=== PATIENT | male | born 1985 | race Hispanic/Latino ===

== ENCOUNTER 2019-06-28 16:30 | Emergency (ER) | payer BC ==
[2019-06-28] MEDS ORDERED: IBUPROFEN 400 MG TAB ONE (17:11)
[2019-06-28] MEDS ORDERED: HYDROCODONE/APAP 10/325 TAB ONE (17:11)
--- NOTE | 2019-06-28 17:32 | EDPHYS ---
Physician Documentation [facility] Name: Jan Grewal Age: 33 yrs Sex: Male : 1985 Arrival Date: 06/28/2019 Time: 16:31 Bed 26 Private MD: ED Physician Bj Nguyen HPI: 06/28 17:07 This 33 yrs old Male presents to ER via Wheelchair with complaints of Ankle rn Injury. 17:07 The patient presents with decreased range of motion, an injury. The complaints affect rn the right ankle. Onset: The symptoms/episode began/occurred just prior to arrival. Modifying factors: The symptoms are alleviated by the symptoms are aggravated by weight bearing, movement. Severity of symptoms: At their worst the symptoms were moderate, in the emergency department the symptoms are unchanged. The patient has experienced a previous episode. The patient has not recently seen a physician. Reports rolled right ankle on curb, reports mild swelling, just happened, no other injury, hurts to walk, put brace on it and felt better. . Historical: - Allergies: 16:59 No Known Allergies; aj1 - Home Meds: 16:59 lisinopril 20 mg Oral tab 1 tab once daily [Active]; aj1 - PMHx: 16:59 Hypertension; Pneumonia; aj1 - Immunization history:: Flu vaccine is not up to date. - Social history:: Smoking status: Patient/guardian denies using tobacco. - Ebola Screening: : Patient denies travel to an Ebola-affected area in the 21 days before illness onset. - Family history:: not pertinent. - Hospitalizations: : No recent hospitalization is reported. ROS: 17:09 Constitutional: Negative for fever, chills, and weight loss, MS/Extremity: + right rn ankle injury and pain Exam: 17:09 Constitutional: This is a well developed, well nourished patient who is awake, alert, rn appears anxious and in pain MS/ Extremity: Pulses equal, no cyanosis. Neurovascular intact. + mild tenderness and swelling at lateral malleolus, no laceration Vital Signs: 16:59 BP 137 / 94; Pulse 112; Resp 20; Temp 99.1; Pulse Ox 97% on R/A; Weight 102.06 kg (R); aj1 Height 5 ft. 6 in. (167.64 cm) (R); Pain 7/10; 17:45 BP 135 / 78; Pulse 95; Resp 18; Temp 98; Pulse Ox 100% on R/A; mg2 16:59 Body Mass Index 36.32 (102.06 kg, 167.64 cm) aj1 MDM: 17:01 Patient medically screened. rn 17:30 Differential diagnosis: fracture, sprain. Data reviewed: vital signs, nurses notes, rn radiologic studies, plain films, and as a result, I will discharge patient. Test interpretation: by ED physician or midlevel provider: plain radiologic studies, Xray right ankle without fracture or dislocation. Counseling: I had a detailed discussion with the patient and/or guardian regarding: the historical points, exam findings, and any diagnostic results supporting the discharge/admit diagnosis, radiology results, the need for outpatient follow up, to return to the emergency department if symptoms worsen or persist or if there are any questions or concerns that arise at home. Response to treatment: the patient's symptoms have mildly improved after treatment, and as a result, I will discharge patient. 06/28 17:02 Order name: XRAY Ankle RIGHT 3 view; Complete Time: 17:50 rn Administered Medications: 17:19 Drug: Motrin 800 mg Route: PO; mg2 17:20 Follow up: Response: No adverse reaction; Medication administered at discharge. mg2 17:19 Drug: [place] 10 mg-325 mg 1 tabs Route: PO; mg2 17:20 Follow up: Response: No adverse reaction; Medication administered at discharge. mg2 Disposition: 06/28/19 17:32 Discharged to Home. Impression: Sprain of ankle. - Condition is Stable. - Discharge Instructions: Ankle Sprain. - Medication Reconciliation Form, Thank You Letter, Antibiotic Education, Prescription Opioid Use form. - Follow up: Private Physician; When: As needed; Reason: Recheck today's complaints, Re-evaluation by your physician. - Problem is new. - Symptoms have improved. Signatures: Dispatcher [employer] EDMS Yaa Shelton RN RN aj1 Bj Nguyen MD MD rn Gardose, Michele, RN RN mg2 Corrections: (The following items were deleted from the chart) 18:06 17:32 06/28/2019 17:32 Discharged to Home. Impression: Sprain of ankle. Condition is mg2 Stable. Forms are Medication Reconciliation Form, Thank You Letter, Antibiotic Education, Prescription Opioid Use. Follow up: Private Physician; When: As needed; Reason: Recheck today's complaints, Re-evaluation by your physician. Problem is new. Symptoms have improved. rn
--- NOTE | 2019-06-28 17:32 | ER ---
Nurse's Notes [facility] Name: Jan Grewal Age: 33 yrs Sex: Male : 1985 Arrival Date: 06/28/2019 Time: 16:31 Bed 26 Private MD: Diagnosis: Sprain of ankle Presentation: 06/28 16:56 Presenting complaint: Patient states: "I got in like 11 last night and I was unloading aj1 my U-haul, and I stepped of the curb and rolled my ankle really bad" Patient reports pain to right ankle. Limited ROM noted to right ankle. Transition of care: patient was not received from another setting of care. Onset of symptoms was June 27, 2019 at 23:00. Risk Assessment: Do you want to hurt yourself or someone else? Patient reports no desire to harm self or others. Initial Sepsis Screen: Does the patient meet any 2 criteria? No. Patient's initial sepsis screen is negative. Does the patient have a suspected source of infection? No. Patient's initial sepsis screen is negative. Care prior to arrival: None. 16:56 Method Of Arrival: Wheelchair aj1 16:56 Acuity: SARAH 4 aj1 Triage Assessment: 16:59 General: Appears in no apparent distress. comfortable, Behavior is calm, cooperative, aj1 appropriate for age. Pain: Complains of pain in right ankle Pain currently is 7 out of 10 on a pain scale. Neuro: Level of Consciousness is awake, alert, obeys commands. Cardiovascular: Patient's skin is warm and dry. Respiratory: Airway is patent Respiratory effort is even, unlabored, Respiratory pattern is regular, symmetrical. Historical: - Allergies: 16:59 No Known Allergies; aj1 - Home Meds: 16:59 lisinopril 20 mg Oral tab 1 tab once daily [Active]; aj1 - PMHx: 16:59 Hypertension; Pneumonia; aj1 - Immunization history:: Flu vaccine is not up to date. - Social history:: Smoking status: Patient/guardian denies using tobacco. - Ebola Screening: : Patient denies travel to an Ebola-affected area in the 21 days before illness onset. - Family history:: not pertinent. - Hospitalizations: : No recent hospitalization is reported. Screenin:22 Abuse screen: Denies threats or abuse. Denies injuries from another. Nutritional mg2 screening: No deficits noted. Tuberculosis screening: No symptoms or risk factors identified. Fall Risk Fall in past 12 months (25 points). Assessment: 17:20 General: Appears in no apparent distress. comfortable, Behavior is calm, cooperative. mg2 Pain: Complains of pain in right ankle Pain does not radiate. Pain currently is 8 out of 10 on a pain scale. Quality of pain is described as aching, Pain began suddenly, last night. Neuro: Level of Consciousness is awake, alert, obeys commands, Oriented to person, place, time, situation. Cardiovascular: Capillary refill < 3 seconds Patient's skin is warm and dry. Respiratory: Airway is patent Respiratory effort is even, unlabored, Respiratory pattern is regular, symmetrical. GI: No signs and/or symptoms were reported involving the gastrointestinal system. : No signs and/or symptoms were reported regarding the genitourinary system. EENT: No signs and/or symptoms were reported regarding the EENT system. Derm: Skin is intact, is healthy with good turgor, Skin is pink, warm \\T\\ dry. normal. Musculoskeletal: Circulation, motion, and sensation intact. Capillary refill < 3 seconds, Swelling present in right ankle. Injury Description: swelling and pain in the right ankle. 18:05 Reassessment: pain is tolerable. mg2 Vital Signs: 16:59 BP 137 / 94; Pulse 112; Resp 20; Temp 99.1; Pulse Ox 97% on R/A; Weight 102.06 kg (R); aj1 Height 5 ft. 6 in. (167.64 cm) (R); Pain 7/10; 17:45 BP 135 / 78; Pulse 95; Resp 18; Temp 98; Pulse Ox 100% on R/A; mg2 16:59 Body Mass Index 36.32 (102.06 kg, 167.64 cm) aj1 ED Course: 16:31 Patient arrived in ED. as 16:59 Triage completed. aj1 16:59 Arm band placed on Patient placed in an exam room. aj1 17:01 Bj Nguyen MD is Attending Physician. rn 17:10 Dominic Parada RN is Primary Nurse. mg2 17:22 Patient has correct armband on for positive identification. Door closed. mg2 17:22 No provider procedures requiring assistance completed. Patient did not have IV access mg2 during this emergency room visit. 17:24 XRAY Ankle RIGHT 3 view In Process Unspecified. EDMS Administered Medications: 17:19 Drug: Motrin 800 mg Route: PO; mg2 17:20 Follow up: Response: No adverse reaction; Medication administered at discharge. mg2 17:19 Drug: [place] 10 mg-325 mg 1 tabs Route: PO; mg2 17:20 Follow up: Response: No adverse reaction; Medication administered at discharge. mg2 Outcome: 17:32 Discharge ordered by . rn 18:05 Discharged to home via wheelchair. mg2 18:05 Condition: stable 18:05 Discharge instructions given to patient, Instructed on discharge instructions, follow up and referral plans. Demonstrated understanding of instructions, follow-up care. 18:06 Patient left the ED. mg2 Signatures: Dispatcher [employer] EDMS Yaa Shelton RN RN reshma1 Rashida Sesay Roman, MD MD rn Gardose, Michele, RN RN mg2
--- NOTE | 2019-06-28 17:46 | RAD REPORT ---
EXAM DESCRIPTION: RAD - Ankle Right 3 View - 06/28/2019 5:24 pm CLINICAL HISTORY: Right ankle pain FINDINGS: Soft tissue swelling. 8 millimeter oval bony density lies between the lateral malleolus and talus. It has a sclerotic borde r which indicates that it likely is chronic No acute fracture or dislocation seen
[2019-06-28 18:16] VITALS: BP 135/78; TEMP 98; O2SAT 100
== END 2019-06-28 18:06 | disposition home or self-care (01) ==
LOC: ER 16:30
DX: S93.401A Sprain of unspecified ligament of right ankle, initial encounter (principal); I10 Essential (primary) hypertension; X50.1XXA Overexertion from prolonged static or awkward postures, initial encounter; Y93.89 Activity, other specified; Y92.9 Unspecified place or not applicable
CPT/HCPCS: 99283

== ENCOUNTER 2019-08-12 14:33 | Emergency (ER) | payer BC, SELFPAY ==
[2019-08-12] MEDS ORDERED: MORPHINE 4 MG/ML SYR ONE (15:06)
[2019-08-12] MEDS ORDERED: ONDANSETRON 4 MG/2 ML VIAL ONE (15:06)
[2019-08-12] MEDS ORDERED: NA CHLORIDE 0.9% 1,000 ML ONE (15:06)
[2019-08-12 15:40] LABS: Absolute Lymphocytes (CBC) 1.1 K/uL (0.7-4.9); Basophils % 0.6 % (0-1.3); Hematocrit 44.6 % (39.6-49.0); Lymphocytes % 10.2 % (15.3-44.8); MPV 10.4 fL (7.6-11.3); RBC Red Blood Cell Count 5.09 M/uL (4.33-5.43)
[2019-08-12 16:05] LABS: Albumin 4.4 g/dL (3.4-5.0); Bilirubin Direct 0.2 mg/dL (0-0.2); Bilirubin Total 0.5 mg/dL (0.2-1.0); Potassium 3.7 mmol/L (3.5-5.1); Protein, Total 8.3 g/dL (6.4-8.2)
--- NOTE | 2019-08-12 16:51 | RAD REPORT ---
EXAM DESCRIPTION: CT - Abdomen Pelvis W Contrast - 08/12/2019 4:21 pm CLINICAL HISTORY: ABD PAIN, nausea, diarrhea COMPARISON: None. TECHNIQUE: Biphasic, helical CT imaging of the abdomen and pelvis was performed following 100 ml non -ionic IV contrast. Oral contrast was given. All CT scans are performed using dose optimization technique as appropriate and may include automated exposure control or mA/KV adjustment according to patient size. FINDINGS: No suspicious findings in the lung bases. Liver shows mild fatty infiltration pattern with no focal lesion. Spleen and pancreas are unremarkabl e. Gallbladder and biliary tree are also without suspicious finding. Symmetric renal function is seen with no hydronephrosis or suspicious renal mass. No pyelonephritis o r acute parenchymal process. No bladder abnormalities. No adrenal abnormalities. No stomach or small bowel abnormality. No appendicitis findings. No colon dilatation. Colon is mostly decompressed. There is trace stranding in the adjacent fat. Silva appear minimally edematous. Mild c olitis is suspected. No free air, free fluid or inflammatory stranding. No hernia, mass or bulky ly mphadenopathy. No suspicious bony findings. IMPRESSION: Suspected mild colitis pattern with no obstruction, free air or surgically emergent find ing. Mild fatty infiltration of the liver.
--- NOTE | 2019-08-12 17:07 | EDPHYS ---
Physician Documentation [facility] Name: Jan Grewal Age: 34 yrs Sex: Male : 1985 Arrival Date: 08/12/2019 Time: 14:36 Bed 23 Private MD: ED Physician Bj Nguyen HPI: 08/12 15:36 This 34 yrs old Male presents to ER via Ambulatory with complaints of pm1 Abdominal Pain. 15:36 The patient presents with abdominal pain. pm1 15:36 The patient presents with abdominal pain in the upper abdomen. Onset: The pm1 symptoms/episode began/occurred last night. The symptoms do not radiate. Associated signs and symptoms: Pertinent positives: nausea and vomiting, Pertinent negatives: chest pain, shortness of breath, testicular pain. The symptoms are described as sharp. Modifying factors: The symptoms are alleviated by nothing, the symptoms are aggravated by nothing. Severity of pain: in the emergency department the pain is actually worse. The patient has not experienced similar symptoms in the past. The patient has not recently seen a physician. Historical: - Allergies: 14:39 No Known Allergies; hb - Home Meds: 14:39 lisinopril 20 mg Oral tab 1 tab once daily [Active]; hb - PMHx: 14:39 Hypertension; Pneumonia; hb - PSHx: 14:39 Hernia repair; hb - Immunization history:: Adult Immunizations up to date. - Social history:: Smoking status: Patient/guardian denies using tobacco. - Ebola Screening: : No symptoms or risks identified at this time. ROS: 15:36 Constitutional: Negative for fever, chills, and weight loss, Eyes: Negative for injury, pm1 pain, redness, and discharge, ENT: Negative for injury, pain, and discharge, Neck: Negative for injury, pain, and swelling, Cardiovascular: Negative for chest pain, palpitations, and edema, Respiratory: Negative for shortness of breath, cough, wheezing, and pleuritic chest pain. 15:36 Back: Negative for injury and pain, : Negative for injury, bleeding, discharge, and swelling, MS/Extremity: Negative for injury and deformity, Skin: Negative for injury, rash, and discoloration, Neuro: Negative for headache, weakness, numbness, tingling, and seizure. 15:36 Abdomen/GI: Positive for abdominal pain, nausea and vomiting, diarrhea, Negative for constipation. Exam: 15:36 Constitutional: This is a well developed, well nourished patient who is awake, alert, pm1 and in no acute distress. Head/Face: Normocephalic, atraumatic. Eyes: Pupils equal round and reactive to light, extra-ocular motions intact. Lids and lashes normal. Conjunctiva and sclera are non-icteric and not injected. Cornea within normal limits. Periorbital areas with no swelling, redness, or edema. ENT: Nares patent. No nasal discharge, no septal abnormalities noted. Tympanic membranes are normal and external auditory canals are clear. Oropharynx with no redness, swelling, or masses, exudates, or evidence of obstruction, uvula midline. Mucous membranes moist. Neck: Trachea midline, no thyromegaly or masses palpated, and no cervical lymphadenopathy. Supple, full range of motion without nuchal rigidity, or vertebral point tenderness. No Meningismus. Chest/axilla: Normal chest wall appearance and motion. Nontender with no deformity. No lesions are appreciated. Cardiovascular: Regular rate and rhythm with a normal S1 and S2. No gallops, murmurs, or rubs. Normal PMI, no JVD. No pulse deficits. Respiratory: Lungs have equal breath sounds bilaterally, clear to auscultation and percussion. No rales, rhonchi or wheezes noted. No increased work of breathing, no retractions or nasal flaring. 15:36 Back: No spinal tenderness. No costovertebral tenderness. Full range of motion. Skin: Warm, dry with normal turgor. Normal color with no rashes, no lesions, and no evidence of cellulitis. MS/ Extremity: Pulses equal, no cyanosis. Neurovascular intact. Full, normal range of motion. 15:36 Abdomen/GI: Inspection: abdomen appears normal, Palpation: soft, mild abdominal tenderness, in the epigastric area, mass, is not appreciated, rebound tenderness, is not appreciated. 15:36 Neuro: Orientation: is normal, Motor: is normal, moves all fours, Gait: is steady, at a normal pace, without difficulty. Vital Signs: 14:39 BP 146 / 93; Pulse 105; Resp 16; Temp 98.8; Pulse Ox 100% on R/A; Weight 104.33 kg; hb Height 5 ft. 6 in. (167.64 cm); Pain 7/10; 16:00 BP 146 / 93; Pulse 89; Resp 17; Pulse Ox 99% on R/A; tr5 14:39 Body Mass Index 37.12 (104.33 kg, 167.64 cm) hb MDM: 15:01 Patient medically screened. pm1 17:06 Data reviewed: vital signs. Data interpreted: Pulse oximetry: on room air is 99 %. pm1 Interpretation: normal. Counseling: I had a detailed discussion with the patient and/or guardian regarding: the historical points, exam findings, and any diagnostic results supporting the discharge/admit diagnosis, lab results, radiology results, the need for outpatient follow up, to return to the emergency department if symptoms worsen or persist or if there are any questions or concerns that arise at home. 08/12 15:01 Order name: Basic Metabolic Panel; Complete Time: 16:07 pm1 08/12 15:01 Order name: CBC with Diff; Complete Time: 16:07 pm1 08/12 15:01 Order name: Creatinine for Radiology; Complete Time: 16:07 pm1 08/12 15:01 Order name: Hepatic Function; Complete Time: 16:07 pm1 08/12 15:01 Order name: Lipase; Complete Time: 16:07 pm1 08/12 15:01 Order name: CT Abd/Pelvis - IV Contrast Only; Complete Time: 16:58 pm1 08/12 15:01 Order name: IV Saline Lock; Complete Time: 15:16 pm1 08/12 15:01 Order name: Labs collected and sent; Complete Time: 15:16 pm1 Administered Medications: 15:30 Drug: NS 0.9% 1000 ml Route: IV; Rate: 1000 ml; Site: right antecubital; tr5 17:34 Follow up: IV Status: Completed infusion; IV Intake: 1000ml tr5 15:31 Drug: morphine 4 mg {Note: RASS:0.} Route: IVP; Site: right antecubital; tr5 17:15 Follow up: Response: No adverse reaction tr5 15:31 Drug: Zofran 4 mg Route: IVP; Site: right antecubital; tr5 17:15 Follow up: Response: Nausea is decreased tr5 17:33 Drug: Cipro 500 mg Route: PO; tr5 17:34 Drug: Flagyl 500 mg Volume: 100 ml; Route: IVPB; Rate: 200 ml/hr; Infused Over: 30 tr5 mins; Site: right antecubital; Disposition: 21:24 Co-signature as Attending Physician, Bj Nguyen MD. rn Disposition: 08/12/19 17:06 Discharged to Home. Impression: Colitis, Diarrhea, unspecified. - Condition is Stable. - Discharge Instructions: Abdominal Pain, Adult, Food Choices to Help Relieve Diarrhea, Adult, Diarrhea, Adult, Colitis. - Prescriptions for Bentyl 20 mg Oral Tablet - take 1 tablet by ORAL route every 6 hours As needed; 20 tablet. Flagyl 500 mg Oral Tablet - take 1 tablet by ORAL route every 8 hours for 10 days; 30 tablet. Cipro 500 mg Oral Tablet - take 1 tablet by ORAL route every 12 hours for 10 days; 20 tablet. Zofran 4 mg Oral Tablet - take 1 tablet by ORAL route every 12 hours As needed; 20 tablet. - Medication Reconciliation Form, Thank You Letter, Antibiotic Education, Prescription Opioid Use, Work release form form. - Follow up: Emergency Department; When: As needed; Reason: Worsening of condition. Follow up: Private Physician; When: 2 - 3 days; Reason: Recheck today's complaints, Continuance of care, Re-evaluation by your physician. - Problem is new. - Symptoms have improved. Signatures: Dispatcher [employer] EDMS Bj Nguyen MD MD rn Marinas, Patrick, NURSE INFORMATICS EDUCATOR NURSE INFORMATICS EDUCATOR pm1 Madeline Atwood RN RN hb Rodriguez, Tommie, RN RN tr5 Corrections: (The following items were deleted from the chart) 18:30 17:06 08/12/2019 17:06 Discharged to Home. Impression: Colitis; Diarrhea, unspecified. tr5 Condition is Stable. Forms are Medication Reconciliation Form, Thank You Letter, Antibiotic Education, Prescription Opioid Use. Follow up: Emergency Department; When: As needed; Reason: Worsening of condition. Follow up: Private Physician; When: 2 - 3 days; Reason: Recheck today's complaints, Continuance of care, Re-evaluation by your physician. Problem is new. Symptoms have improved. pm1
--- NOTE | 2019-08-12 17:07 | ER ---
Nurse's Notes [facility] Name: Jan Grewal Age: 34 yrs Sex: Male : 1985 Arrival Date: 08/12/2019 Time: 14:36 Bed 23 Private MD: Diagnosis: Colitis;Diarrhea, unspecified Presentation: 08/12 14:38 Presenting complaint: Upper abdominal pain, nausea, and diarrhea since last night, hb vomit x 1 today. Transition of care: patient was not received from another setting of care. Onset of symptoms was August 11, 2019. Risk Assessment: Do you want to hurt yourself or someone else? Patient reports no desire to harm self or others. Initial Sepsis Screen: Does the patient meet any 2 criteria? No. Patient's initial sepsis screen is negative. Does the patient have a suspected source of infection? No. Patient's initial sepsis screen is negative. Care prior to arrival: None. 14:38 Method Of Arrival: Ambulatory hb 14:38 Acuity: SARAH 3 hb Historical: - Allergies: 14:39 No Known Allergies; hb - Home Meds: 14:39 lisinopril 20 mg Oral tab 1 tab once daily [Active]; hb - PMHx: 14:39 Hypertension; Pneumonia; hb - PSHx: 14:39 Hernia repair; hb - Immunization history:: Adult Immunizations up to date. - Social history:: Smoking status: Patient/guardian denies using tobacco. - Ebola Screening: : No symptoms or risks identified at this time. Screenin:15 Abuse screen: Denies threats or abuse. Nutritional screening: No deficits noted. tr5 Tuberculosis screening: No symptoms or risk factors identified. Fall Risk None identified. Assessment: 15:15 General: Appears in no apparent distress. Behavior is calm, cooperative, appropriate tr5 for age. Pain: Complains of pain in abdomen. Neuro: Level of Consciousness is awake, alert, obeys commands, Oriented to person, place, time. Cardiovascular: Heart tones present Capillary refill < 3 seconds Pulses are all present. Edema is absent. Respiratory: Airway is patent Respiratory effort is even, unlabored, Respiratory pattern is regular, symmetrical. GI: Bowel sounds present X 4 quads. Abd is soft. GI: Reports cramping, diarrhea, nausea. : No signs and/or symptoms were reported regarding the genitourinary system. EENT: No signs and/or symptoms were reported regarding the EENT system. Derm: No signs and/or symptoms reported regarding the dermatologic system. Musculoskeletal: No signs and/or symptoms reported regarding the musculoskeletal system. 16:41 Reassessment: Patient appears in no apparent distress at this time. Patient and/or tr5 family updated on plan of care and expected duration. Pain level reassessed. Patient is alert, oriented x 3, equal unlabored respirations, skin warm/dry/pink. Vital Signs: 14:39 BP 146 / 93; Pulse 105; Resp 16; Temp 98.8; Pulse Ox 100% on R/A; Weight 104.33 kg; hb Height 5 ft. 6 in. (167.64 cm); Pain 7/10; 16:00 BP 146 / 93; Pulse 89; Resp 17; Pulse Ox 99% on R/A; tr5 14:39 Body Mass Index 37.12 (104.33 kg, 167.64 cm) hb ED Course: 14:36 Patient arrived in ED. mr 14:39 Triage completed. hb 14:39 Arm band placed on. hb 14:59 Sammy Ferrer, JARETT is PHCP. pm1 14:59 Bj Nguyen MD is Attending Physician. pm1 15:02 Fredrick Salinas, RN is Primary Nurse. tr5 15:15 Bed in low position. Call light in reach. Side rails up X 1. tr5 15:16 Initial lab(s) drawn, by me, sent to lab. Inserted saline lock: 20 gauge in right lt1 antecubital area, using aseptic technique. 15:18 Radiology exam delayed due to lab results not completed at this time. (BUN/Creatinine). kw1 15:23 Radiology exam delayed due to lab results not completed at this time. (BUN/Creatinine). kw1 15:39 Radiology exam delayed due to lab results not completed at this time. (BUN/Creatinine). nj 16:22 CT Abd/Pelvis - IV Contrast Only In Process Unspecified. EDMS 18:28 No provider procedures requiring assistance completed. IV discontinued. tr5 Administered Medications: 15:30 Drug: NS 0.9% 1000 ml Route: IV; Rate: 1000 ml; Site: right antecubital; tr5 17:34 Follow up: IV Status: Completed infusion; IV Intake: 1000ml tr5 15:31 Drug: morphine 4 mg {Note: RASS:0.} Route: IVP; Site: right antecubital; tr5 17:15 Follow up: Response: No adverse reaction tr5 15:31 Drug: Zofran 4 mg Route: IVP; Site: right antecubital; tr5 17:15 Follow up: Response: Nausea is decreased tr5 17:33 Drug: Cipro 500 mg Route: PO; tr5 17:34 Drug: Flagyl 500 mg Volume: 100 ml; Route: IVPB; Rate: 200 ml/hr; Infused Over: 30 tr5 mins; Site: right antecubital; Intake: 17:34 IV: 1000ml; Total: 1000ml. tr5 Outcome: 17:06 Discharge ordered by . pm1 18:28 Discharged to home ambulatory. tr5 18:28 Condition: stable 18:28 Discharge instructions given to patient, family, Instructed on discharge instructions, follow up and referral plans. medication usage, Demonstrated understanding of instructions, follow-up care, medications, Prescriptions given X 3. 18:30 Patient left the ED. tr5 Signatures: Dispatcher [employer] EDIN FranciscoJennifer NabilSammy, TRUCKING SUPERVISOR TRUCKING SUPERVISOR pm1 Madeline Atwood, MIKAL RN Bret Smith Kimberly 1 Nanda Diggs lt1 Fredrick Salinas RN RN tr5
[2019-08-12] MEDS ORDERED: CIPROFLOXACIN HCL 500 MG TAB ONE (17:27)
[2019-08-12] MEDS ORDERED: METRONIDAZOLE 500mg IVPB 500 MG/100 ML BAG IV ONE (17:27)
[2019-08-12 18:51] VITALS: BP 146/93; TEMP 98.8
[2019-08-12 18:53] VITALS: O2SAT 99
== END 2019-08-12 18:30 | disposition home or self-care (01) ==
LOC: ER 14:33
DX: K52.9 Noninfective gastroenteritis and colitis, unspecified (principal); I10 Essential (primary) hypertension
CPT/HCPCS: 36415; 74177; 80048; 80076; 83690; 85025; 96361; 96374; 96375; 99284; J2405; J7030; Q9967

== ENCOUNTER 2019-10-01 14:43 | Emergency (ER) | payer BC, SELFPAY ==
--- NOTE | 2019-10-01 15:57 | RAD REPORT ---
EXAM DESCRIPTION: Juan Manuel Single View10/01/2019 3:25 pm CLINICAL HISTORY: Chest pain COMPARISON: none FINDINGS: The lungs appear clear of acute infiltrate. The heart is normal size IMPRESSION: No acute abnormalities displayed
[2019-10-01 16:29] LABS: Absolute Lymphocytes (CBC) 2.6 K/uL (0.7-4.9); Basophils % 1.2 % (0-1.3); Hematocrit 45.1 % (39.6-49.0); Lymphocytes % 25.8 % (15.3-44.8); MPV 9.9 fL (7.6-11.3); RBC Red Blood Cell Count 5.11 M/uL (4.33-5.43)
[2019-10-01] MEDS ORDERED: lisinopriL 20 MG TAB ONE (16:33)
[2019-10-01 16:47] LABS: ALT/SGPT 34 U/L (12-78); AST/SGOT 23 U/L (15-37); Albumin 4.4 g/dL (3.4-5.0); Alkaline Phosphatase 56 U/L (45-117); BUN Blood Urea Nitrogen 15 mg/dL (7-18); Bicarbonate 26 mmol/L (21-32); Bilirubin Direct 0.1 mg/dL (0-0.2); Bilirubin Total 0.4 mg/dL (0.2-1.0); Glucose Level 89 mg/dL (74-106); Magnesium 2.3 mg/dL (1.8-2.4); NT PRO-BNP 8 pg/mL (<125); Potassium 3.8 mmol/L (3.5-5.1); Protein, Total 8.1 g/dL (6.4-8.2); Sodium Level 141 mmol/L (136-145); Troponin (Emerg Dept Use Only) < 0.02 ng/mL (0.0-0.045)
--- NOTE | 2019-10-01 17:46 | EDPHYS ---
Physician Documentation [facility] Name: Jan Grewal Age: 34 yrs Sex: Male : 1985 Arrival Date: 10/01/2019 Time: 14:47 Bed 20 Private MD: ED Physician Asher Mora HPI: 10/01 15:27 This 34 yrs old Male presents to ER via Ambulatory with complaints of High kb Blood Pressure. 15:27 The patient or guardian reports chest pain that is located primarily in the chest kb diffusely. The pain does not radiate. Associated signs and symptoms: Pertinent positives: high blood pressure. The chest pain is described as a pressure. Duration: The patient or guardian reports a single episode, that is now resolved. Modifying factors: The symptoms are alleviated by nothing. the symptoms are aggravated by nothing. Severity of pain: At its worst the pain was mild moderate in the emergency department the pain has resolved and did so just prior to arrival. The patient has not experienced similar symptoms in the past. The patient has not recently seen a physician. Pt reports he was working and started feeling pressure in his chest. They gave him 3 baby aspirin and checked his blood pressure at work and it was 200/110 so they brought him in to be checked out. Pt reports pain is resolved at this time. Historical: - Allergies: 14:52 No Known Allergies; jl7 - Home Meds: 14:52 lisinopril 20 mg Oral tab 1 tab once daily [Active]; jl7 - PMHx: 14:52 Hypertension; Pneumonia; jl7 - PSHx: 14:52 Hernia repair; jl7 - Immunization history:: Adult Immunizations not up to date. - Social history:: Smoking status: Patient uses tobacco products, denies chronic smoking, but will smoke occasionally, cigars. - Ebola Screening: : No symptoms or risks identified at this time. ROS: 15:26 Constitutional: Negative for fever, chills, and weight loss, ENT: Negative for injury, kb pain, and discharge, Neck: Negative for injury, pain, and swelling, Respiratory: Negative for shortness of breath, cough, wheezing, and pleuritic chest pain, Abdomen/GI: Negative for abdominal pain, nausea, vomiting, diarrhea, and constipation, Back: Negative for injury and pain, MS/Extremity: Negative for injury and deformity, Skin: Negative for injury, rash, and discoloration, Neuro: Negative for headache, weakness, numbness, tingling, and seizure. 15:26 Cardiovascular: Positive for chest pain, of the chest, described as pressure. Exam: 15:11 ECG was reviewed by the Attending Physician. kb 15:25 Constitutional: This is a well developed, well nourished patient who is awake, alert, kb and in no acute distress. Head/Face: Normocephalic, atraumatic. ENT: Nares patent. No nasal discharge, no septal abnormalities noted. Tympanic membranes are normal and external auditory canals are clear. Oropharynx with no redness, swelling, or masses, exudates, or evidence of obstruction, uvula midline. Mucous membranes moist. Neck: Trachea midline, no thyromegaly or masses palpated, and no cervical lymphadenopathy. Supple, full range of motion without nuchal rigidity, or vertebral point tenderness. No Meningismus. Chest/axilla: Normal chest wall appearance and motion. Nontender with no deformity. No lesions are appreciated. Cardiovascular: Regular rate and rhythm with a normal S1 and S2. No gallops, murmurs, or rubs. Normal PMI, no JVD. No pulse deficits. Respiratory: Lungs have equal breath sounds bilaterally, clear to auscultation and percussion. No rales, rhonchi or wheezes noted. No increased work of breathing, no retractions or nasal flaring. Abdomen/GI: Soft, non-tender, with normal bowel sounds. No distension or tympany. No guarding or rebound. No evidence of tenderness throughout. Skin: Warm, dry with normal turgor. Normal color with no rashes, no lesions, and no evidence of cellulitis. MS/ Extremity: Pulses equal, no cyanosis. Neurovascular intact. Full, normal range of motion. Neuro: Awake and alert, GCS 15, oriented to person, place, time, and situation. Cranial nerves II-XII grossly intact. Motor strength 5/5 in all extremities. Sensory grossly intact. Cerebellar exam normal. Normal gait. 17:21 ECG was reviewed by the Attending Physician. kb Vital Signs: 14:52 BP 156 / 98; Pulse 96; Resp 17 S; Temp 98.7(O); Pulse Ox 98% on R/A; Weight 102.06 kg jl7 (R); Height 5 ft. 6 in. (167.64 cm) (R); Pain 0/10; 15:25 BP 141 / 89; Pulse 87; Resp 18; Pulse Ox 99% on R/A; Pain 0/10; em 16:20 BP 155 / 101; Pulse 88; Resp 18; Pulse Ox 99% on R/A; Pain 0/10; em 17:00 BP 151 / 101; Pulse 84; Resp 17 S; Pulse Ox 100% on R/A; ca1 18:04 BP 152 / 94; Pulse 85; Resp 18; Pulse Ox 99% on R/A; Pain 0/10; em 14:52 Body Mass Index 36.32 (102.06 kg, 167.64 cm) jl7 MDM: 15:02 Patient medically screened. kb 15:25 Data reviewed: vital signs, nurses notes. Data interpreted: Pulse oximetry: on room air kb is 98 %. Interpretation: normal. 17:05 ED course: Pt educated on keeping BP log and following up for possible medication kb adjustment. Verbal understanding received. . 17:45 Counseling: I had a detailed discussion with the patient and/or guardian regarding: the kb historical points, exam findings, and any diagnostic results supporting the discharge/admit diagnosis, lab results, radiology results, the need for outpatient follow up, a family practitioner, to return to the emergency department if symptoms worsen or persist or if there are any questions or concerns that arise at home. 10/01 15:11 Order name: Basic Metabolic Panel; Complete Time: 16:48 kb 10/01 15:11 Order name: CBC with Diff; Complete Time: 16:38 kb 10/01 15:11 Order name: LFT's; Complete Time: 16:48 kb 10/01 15:11 Order name: Magnesium; Complete Time: 16:48 kb 10/01 15:11 Order name: NT PRO-BNP; Complete Time: 16:48 kb 10/01 15:11 Order name: Troponin (emerg Dept Use Only); Complete Time: 16:48 kb 10/01 15:11 Order name: XRAY Chest (1 view); Complete Time: 16:13 kb 10/01 15:11 Order name: EKG; Complete Time: 15:12 kb 10/01 15:11 Order name: Cardiac monitoring; Complete Time: 15:35 kb 01/08 15:11 Order name: EKG - Nurse/Tech; Complete Time: 15:35 kb 10/01 15:11 Order name: IV Saline Lock; Complete Time: 15:35 kb 10/01 17:02 Order name: Troponin (emerg Dept Use Only); Complete Time: 17:44 kb 10/01 17:02 Order name: EKG; Complete Time: 17:03 kb 10/01 15:11 Order name: Labs collected and sent; Complete Time: 15:39 kb 10/01 15:11 Order name: O2 Per Protocol; Complete Time: 15:39 kb 10/01 15:11 Order name: O2 Sat Monitoring; Complete Time: 15:39 kb 10/01 17:02 Order name: EKG - Nurse/Tech; Complete Time: 17:21 kb EC:11 Rate is 92 beats/min. Rhythm is regular. QRS Malcom is Normal. WI interval is normal at kb 136 msec. QRS interval is normal at 80 msec. QT interval is normal at 354 msec. 17:21 Rate is 85 beats/min. Rhythm is regular. QRS [place] is Normal. WI interval is normal at kb 142 msec. QRS interval is normal at 82 msec. QT interval is normal at 354 msec. Administered Medications: 16:37 Drug: Lisinopril 20 mg Route: PO; em 17:49 Follow up: Response: No adverse reaction em Disposition: 19:17 Co-signature as Attending Physician, Asher Mora MD I agree with the assessment and kdr plan of care. Disposition: 10/01/19 17:45 Discharged to Home. Impression: Chest pain, unspecified, Essential (primary) hypertension. - Condition is Stable. - Discharge Instructions: Nonspecific Chest Pain, [id number], Hypertension, [id number], Managing Your Hypertension. - Medication Reconciliation Form, Thank You Letter, Antibiotic Education, Prescription Opioid Use form. - Follow up: Emergency Department; When: As needed; Reason: Worsening of condition. Follow up: Private Physician; When: 2 - 3 days; Reason: Recheck today's complaints, Continuance of care, Re-evaluation by your physician. Signatures: Dispatcher [employer] EDKori Saavedra, MILKING MACHINE OPERATORMarvaC Asher Boston MD MD kdr Munoz, Edgar RN RN em Giuliana Sanabria RN RN jl7 Corrections: (The following items were deleted from the chart) 18:05 17:45 10/01/2019 17:45 Discharged to Home. Impression: Chest pain, unspecified; em Essential (primary) hypertension. Condition is Stable. Forms are Medication Reconciliation Form, Thank You Letter, Antibiotic Education, Prescription Opioid Use. Follow up: Emergency Department; When: As needed; Reason: Worsening of condition. Follow up: Private Physician; When: 2 - 3 days; Reason: Recheck today's complaints, Continuance of care, Re-evaluation by your physician. kb
--- NOTE | 2019-10-01 17:46 | ER ---
Nurse's Notes [facility] Name: Jan Grewal Age: 34 yrs Sex: Male : 1985 Arrival Date: 10/01/2019 Time: 14:47 Bed 20 Private MD: Diagnosis: Chest pain, unspecified;Essential (primary) hypertension Presentation: 10/01 14:49 Presenting complaint: Patient states: I started feeling pressure in my chest at about jl7 1345, took BP and is was 200/110, reports chest pressure has resolved. Transition of care: patient was not received from another setting of care. Onset of symptoms was October 01, 2019 at 13:45. Risk Assessment: Do you want to hurt yourself or someone else? Patient reports no desire to harm self or others. Initial Sepsis Screen: Does the patient meet any 2 criteria? No. Patient's initial sepsis screen is negative. Does the patient have a suspected source of infection? No. Patient's initial sepsis screen is negative. Care prior to arrival: None. 14:49 Method Of Arrival: Ambulatory [facility] 14:49 Acuity: SARAH 3 jl7 Triage Assessment: 14:52 General: Appears in no apparent distress. uncomfortable, Behavior is calm, cooperative, jl7 appropriate for age. Pain: Denies pain. Historical: - Allergies: 14:52 No Known Allergies; jl7 - Home Meds: 14:52 lisinopril 20 mg Oral tab 1 tab once daily [Active]; jl7 - PMHx: 14:52 Hypertension; Pneumonia; jl7 - PSHx: 14:52 Hernia repair; jl7 - Immunization history:: Adult Immunizations not up to date. - Social history:: Smoking status: Patient uses tobacco products, denies chronic smoking, but will smoke occasionally, cigars. - Ebola Screening: : No symptoms or risks identified at this time. Screenin:30 Abuse screen: Denies threats or abuse. Nutritional screening: No deficits noted. em Tuberculosis screening: No symptoms or risk factors identified. Fall Risk None identified. Assessment: 15:25 General: Appears in no apparent distress. comfortable, Behavior is calm, cooperative. em Pain: Denies pain. Neuro: Level of Consciousness is awake, alert, obeys commands, Oriented to person, place, time, situation, Appropriate for age. Cardiovascular: Reports chest pressure that started around 130 pm Capillary refill < 3 seconds Patient's skin is warm and dry. Respiratory: Airway is patent Respiratory effort is even, unlabored, Respiratory pattern is regular, symmetrical, Breath sounds are clear bilaterally. GI: Patient currently denies nausea, vomiting. Derm: Skin is intact, is healthy with good turgor, Skin is pink, warm \T\ dry. Musculoskeletal: Capillary refill < 3 seconds, Range of motion: intact in all extremities. 16:25 Reassessment: Patient appears in no apparent distress at this time. BP 155/101, em provider notified, received verbal orders to give 20 mg lisinopril. 18:04 Reassessment: Patient appears in no apparent distress at this time. Patient and/or em family updated on plan of care and expected duration. Pain level reassessed. Patient is alert, oriented x 3, equal unlabored respirations, skin warm/dry/pink. Patient denies pain at this time. Vital Signs: 14:52 BP 156 / 98; Pulse 96; Resp 17 S; Temp 98.7(O); Pulse Ox 98% on R/A; Weight 102.06 kg jl7 (R); Height 5 ft. 6 in. (167.64 cm) (R); Pain 0/10; 15:25 BP 141 / 89; Pulse 87; Resp 18; Pulse Ox 99% on R/A; Pain 0/10; em 16:20 BP 155 / 101; Pulse 88; Resp 18; Pulse Ox 99% on R/A; Pain 0/10; em 17:00 BP 151 / 101; Pulse 84; Resp 17 S; Pulse Ox 100% on R/A; ca1 18:04 BP 152 / 94; Pulse 85; Resp 18; Pulse Ox 99% on R/A; Pain 0/10; em 14:52 Body Mass Index 36.32 (102.06 kg, 167.64 cm) jl7 ED Course: 14:47 Patient arrived in ED. mr 14:52 Triage completed. jl7 14:52 Arm band placed on right wrist. jl7 14:54 Rolf Gómez, MIKAL is Primary Nurse. em 15:02 Kori Randall FNP-C [facility]. kb 15:02 Asher Mora MD is Attending Physician. kb 15:15 EKG done, by certified control systems technician. reviewed by Kori OLGUIN. at1 15:25 XRAY Chest (1 view) In Process Unspecified. EDMS 15:30 Patient has correct armband on for positive identification. Placed in gown. Bed in low em position. Call light in reach. Adult w/ patient. monitor tech on. Pulse ox on. NIBP on. 15:30 Initial lab(s) drawn, by me, sent to lab. Inserted saline lock: 20 gauge in right em antecubital area, using aseptic technique. Blood collected. 17:21 Troponin (emerg Dept Use Only) Sent. ca1 17:22 Repeat lab(s) drawn. by ED staff, sent to lab. ca1 18:03 No provider procedures requiring assistance completed. IV discontinued, intact, em bleeding controlled, No redness/swelling at site. Pressure dressing applied. Administered Medications: 16:37 Drug: Lisinopril 20 mg Route: PO; em 17:49 Follow up: Response: No adverse reaction em Outcome: 17:45 Discharge ordered by . kb 18:03 Discharged to home ambulatory, with family. em 18:03 Condition: good 18:03 Discharge instructions given to patient, Instructed on discharge instructions, follow up and referral plans. Demonstrated understanding of instructions, follow-up care. 18:05 Patient left the ED. em Signatures: Dispatcher [employer] ROYCEOR Kori Randall, SALOMÓN-Yanet VILLALOBOSP-Sonia Francisco Jennifer GómezRolf, RN RN em Gail Oakes, manager line EKG Tat1 Giuliana Sanabria, RN RN jl7 Kassy Mai RN RN ca1
[2019-10-01 18:18] VITALS: BP 152/94; O2SAT 99
--- NOTE | 2019-10-02 06:45 | EKG ---
Test Date: 2019-10-01 Test Time: 17:20:49 Nurse Coordinator: BRANDON MEASUREMENT RESULTS: Intervals: Rate: 85 CA: 142 QRSD: 82 QT: 354 QTc: 421 [place]: P: 50 CA: 142 QRS: 78 T: -3 INTERPRETIVE STATEMENTS: Normal sinus rhythm Nonspecific T wave abnormality Abnormal ECG Compared to ECG 10/01/2019 15:06:24 No significant changes Electronically Signed On 10-02-19 06:45:00 HAIRSPRING FABRICATION SUPERVISOR by Werner Kraus
--- NOTE | 2019-10-02 06:47 | EKG ---
Test Date: 2019-10-01 Test Time: 15:06:24 Cross Cut Saw Operator: GEOVANI MEASUREMENT RESULTS: Intervals: Rate: 92 NV: 136 QRSD: 80 QT: 354 QTc: 437 [place]: P: 71 NV: 136 QRS: 78 T: 30 INTERPRETIVE STATEMENTS: Normal sinus rhythm Nonspecific T wave abnormality Abnormal ECG No previous ECG available for comparison Electronically Signed On 10-02-19 06:45:12 BIOMEDICAL ENGINEERING TECHNICIAN by Werner Kraus
[2019-10-03 18:42] VITALS: TEMP 98.7
== END 2019-10-01 18:05 | disposition home or self-care (01) ==
LOC: ER 14:43
DX: I10 Essential (primary) hypertension (principal); Z72.0 Tobacco use
CPT/HCPCS: 36415; 71045; 80048; 80076; 83735; 83880; 84484; 85025; 93005; 99284